=== PATIENT | male | born 1940 | race Caucasian/White ===

== ENCOUNTER 2020-10-09 18:47 | Observation (INO) ==
[2020-10-09] MEDS ORDERED: NS 0.9% 1000 ml BAG 1,000 ML IV ONE (18:50)
[2020-10-09] MEDS ORDERED: Dextrose 50% Syringe 50 ml 25 GM/50 ML SYRINGE ONE (18:54)
[2020-10-09] MEDS ORDERED: Iodixanol (CONTRAST) 320 MG/ML 100 ML SDV IV ONE (19:09)
[2020-10-09] MEDS ORDERED: Dextrose 50% Syringe 50 ml 25 GM/50 ML SYRINGE IV PUSH ONE (19:29)
[2020-10-09 19:30] LABS: ABS Basophils 0.1 10^3/ul (0-0.2); ABS Eosinophils 0.3 10^3/ul (0-0.6); ABS Lymphocytes 1.4 10^3/ul (1.0-4.8); ABS Monocytes 1.3 10^3/ul (0-0.8); Eosinophil % 3.7 %; Hematocrit 34 % (42-52); Hemoglobin 11.8 g/dL (14.0-18.0); Lymphocyte % 14.9 %; Mean Corpuscular HGB Conc 34 g/dL (31-36); Mean Corpuscular Hemoglobin 32 pg (27-31); Mean Corpuscular Volume 93 fL (80-94); Mean Platelet Volume 7.5 fL (7.4-10.4); Platelet Count 283 10^3/uL (150-450); Red Cell Distribution Width 17 % (10-15); White Blood Count 9.1 10^3/uL (3.5-10.8)
[2020-10-09 19:39] LABS: Activated Partial Thrombo Time 29.9 seconds (26.0-38.0); INR 0.87 (0.82-1.09)
[2020-10-09 19:42] LABS: Albumin 3.4 g/dL (3.2-5.2); Albumin/Globulin Ratio 1.2 (1-3); Calcium 8.3 mg/dL (8.6-10.3); EGFR African American 77.5 (>60); EGFR Non-African American 64.1 (>60); Globulin 2.8 g/dL (2-4); HDL Cholesterol 64.3 mg/dL; Potassium 3.8 mmol/L (3.5-5.0); Total Bilirubin 0.3 mg/dL (0.2-1.0); Total Protein 6.2 g/dL (6.4-8.9)
[2020-10-09] MEDS ORDERED: Thiamine 100 MG/ML 2 ml VIAL 100 MG, Folic Acid IV 1 MG, Multiple Vitamin IV ADULT 10 M... IV ONE (22:53)
[2020-10-09] MEDS ORDERED: NORMOSOL-R pH 7.4 1000 mL BAG 1,000 ML IV SCH (23:00)
[2020-10-09 23:36] LABS: Calcium 7.6 mg/dL (8.6-10.3); EGFR African American 85.6 (>60); EGFR Non-African American 70.7 (>60); Potassium 3.6 mmol/L (3.5-5.0)
[2020-10-10] MEDS ORDERED: NORMOSOL-R pH 7.4 1000 mL BAG 1,000 ML IV SCH (02:00)
[2020-10-10 03:28] LABS: ABS Eosinophils 0.2 10^3/ul (0-0.6); ABS Monocytes 0.8 10^3/ul (0-0.8); ABS Neutrophils 4.7 10^3/ul (1.5-7.7); Eosinophil % 3.6 %; Hematocrit 31 % (42-52); Hemoglobin 11.1 g/dL (14.0-18.0); Lymphocyte % 15.1 %; Mean Corpuscular HGB Conc 36 g/dL (31-36); Mean Corpuscular Hemoglobin 34 pg (27-31); Mean Corpuscular Volume 93 fL (80-94); Mean Platelet Volume 7.5 fL (7.4-10.4); Platelet Count 273 10^3/uL (150-450); Red Blood Count 3.32 10^6 /uL (4.18-5.48); Red Cell Distribution Width 17 % (10-15); White Blood Count 6.8 10^3/uL (3.5-10.8)
[2020-10-10 03:44] LABS: Calcium 7.7 mg/dL (8.6-10.3); EGFR African American 101.7 (>60); Magnesium 1.6 mg/dL (1.9-2.7); Phosphorus 3.2 mg/dL (2.5-5.0); Potassium 3.9 mmol/L (3.5-5.0)
[2020-10-10] MEDS ORDERED: Magnesium Sulf 4 GM/100 ML IV 4,000 MG/100 ML BAG IVPB ONE (04:14)
[2020-10-10] MEDS ORDERED: Potassium Chlor 20 meq TAB.ER PO ONE (04:14)
[2020-10-10 09:04] LABS: Urine Appearance Clear; Urine Bilirubin Negative (Negative); Urine Blood Negative (Negative); Urine Color Straw; Urine Glucose Negative (Negative); Urine Ketones Negative (Negative); Urine Nitrite Negative (Negative); Urine Protein Negative (Negative); Urine Specific Gravity 1.006 (1.002-1.030); Urine Urobilinogen Negative (Negative)
[2020-10-10] MEDS: Multivitamins/Minerals TAB PO SCH (09:26)
[2020-10-10] MEDS: Heparin 5000 UNITS/ML 1 mL VIAL SUBCUT SCH ×2 (09:26→20:19)
[2020-10-10 09:28] LABS: Urine Benzodiazepine Screen None Detected (None Detect); Urine Cannabinoids Screen None Detected (None Detect); Urine Opiates Screen None Detected (None Detect)
[2020-10-10] MEDS ORDERED: oxyCODONE/Acetamin 10/325(NF) TAB PO PRN (12:40)
[2020-10-10] MEDS: oxyCODONE/Acetamin 5/325 mg TAB PO PRN ×2 (14:23→23:52)
[2020-10-11 07:00] LABS: Hematocrit 30 % (42-52); Hemoglobin 10.4 g/dL (14.0-18.0); Mean Corpuscular HGB Conc 34 g/dL (31-36); Mean Corpuscular Hemoglobin 32 pg (27-31); Mean Corpuscular Volume 92 fL (80-94); Mean Platelet Volume 7.3 fL (7.4-10.4); Platelet Count 254 10^3/uL (150-450); Red Blood Count 3.29 10^6 /uL (4.18-5.48); Red Cell Distribution Width 16 % (10-15); White Blood Count 6.3 10^3/uL (3.5-10.8)
[2020-10-11 07:15] LABS: Calcium 8.2 mg/dL (8.6-10.3); EGFR African American 130.6 (>60); Magnesium 1.9 mg/dL (1.9-2.7); Phosphorus 3.7 mg/dL (2.5-5.0); Potassium 3.7 mmol/L (3.5-5.0)
[2020-10-11 08:13] LABS: INR 0.91 (0.82-1.09)
[2020-10-11] MEDS: Multivitamins/Minerals TAB PO SCH (08:41)
[2020-10-11] MEDS: Heparin 5000 UNITS/ML 1 mL VIAL SUBCUT SCH (08:44)
[2020-10-11] MEDS: oxyCODONE/Acetamin 5/325 mg TAB PO PRN (08:55)
[2020-10-11 12:06] VITALS: BP 153/76
== END 2020-10-11 14:35 | disposition home or self-care (01) ==
LOC: ED 18:47 → INTOOBSV 21:22 → ICU 21:22 → MEDTELE 10-10 15:37
PROVIDERS: ADMIT Hospitalist; ATTEND Internal Medicine